=== PATIENT | male | born 1980 | race Caucasian/White ===

== ENCOUNTER 2016-08-20 22:10 | Emergency (ER) | payer SELFPAY ==
[~2016-08-20] VITALS: Ht 185.4 cm; Wt 83.9 kg
[2016-08-20 22:10] VITALS: BP 127/95; PULSE 109; RESP 20; TEMP 98.5; O2SAT 99
[2016-08-20] MEDS ORDERED: NACL 0.9% 1,000 ML IV SCH (22:21)
[2016-08-20] MEDS ORDERED: DEXAMETHASONE SOD PHOSPHATE 10 MG/ML VIAL IVP ONE (22:30)
[2016-08-20] MEDS ORDERED: ONDANSETRON HCL 4 MG/2 ML VIAL IVP ONE (22:30)
[2016-08-20] MEDS ORDERED: PROCHLORPERAZINE EDISYLATE 10 MG/2 ML VIAL IVP ONE (22:30)
[2016-08-20 23:11] LABS: HEMATOCRIT 49.5 % (36-54); HEMOGLOBIN 16.6 g/dL (14.0-18.0); MEAN CORPUSCULAR HEMOGLOBIN 32 pg (27-31); MEAN CORPUSCULAR HGB CONC 34 % (32-36); MEAN CORPUSCULAR VOLUME 95 fL (79.0-98.0); PLATELET COUNT (AUTO) 257 K/uL (130-430); RED CELL DISTRIBUTION WIDTH 12.3 % (9.0-15.0); WHITE BLOOD COUNT (AUTO) 14.6 K/uL (4.8-10.8)
[2016-08-20 23:25] LABS: BILIRUBIN,URINE 1+ (NEGATIVE); CLARITY/URINE CLEAR (CLEAR); COLOR,URINE YELLOW (YELLOW); GLUCOSE,URINE NEGATIVE (NEGATIVE); KETONES,URINE 1+ (NEGATIVE); LEUKOCYTE ESTERASE ,URINE NEGATIVE (NEGATIVE); NITRITE, URINE NEGATIVE (NEGATIVE); PH,URINE 5.5 (5.0-8.0); PROTEIN URINE 1+ (NEGATIVE); PROTHROMBIN TIME 10.4 SECS (9.5-12.5); UROBILINOGEN,URINE 0.2 (0.2-1.0)
[2016-08-20 23:27] LABS: CALCIUM 10.9 mg/dL (8.4-11.0); CREATININE 2.14 mg/dL (0.55-1.30); POTASSIUM 3.9 mmol/L (3.5-5.1)
[2016-08-20] MEDS ORDERED: MORPHINE 2 MG/ML INJ. SYRINGE IVP ONE (23:30)
[2016-08-20] MEDS ORDERED: KETOROLAC TROMETHAMINE 30 MG VIAL IVP ONE (23:30)
[2016-08-20 23:32] LABS: ALBUMIN 5.4 g/dL (3.4-4.8); TOTAL BILIRUBIN 0.7 mg/dL (0.0-1.0); TOTAL PROTEIN, SERUM 9.3 g/dL (6.4-8.3)
[2016-08-20 23:34] LABS: BAND % (MANUAL) 1 % (0-6); BASOPHILS % (MANUAL) 0 % (0-2); EOSINOPHILS % (MANUAL) 0 % (0-7); LYMPHOCYTES % (MANUAL) 10 % (20-46); MONOCYTES % (MANUAL) 3 % (0-11)
[2016-08-20 23:45] LABS: BLOOD, URINE TRACE (NEGATIVE)
[2016-08-20 23:49] LABS: BACTERIA,URINE FEW /HPF (None Seen); FINE GRANULAR CASTS,URINE 0-10 /LPF (None Seen); MUCUS,URINE None Seen /LPF (None Seen)
[2016-08-21 00:39] VITALS: BP 123/76; PULSE 78; RESP 19; TEMP 98.2; O2SAT 98
== END 2016-08-21 00:39 | disposition home or self-care (01) ==
LOC: SED 22:10
DX: K52.9 Noninfective gastroenteritis and colitis, unspecified (principal); Z88.0 Allergy status to penicillin; Z91.010 Allergy to peanuts; Z90.49 Acquired absence of other specified parts of digestive tract
CPT/HCPCS: 36415; 71010; 74176; 80053; 81000; 83605; 85007; 85027; 85610; 85730; 87040; 87086; 93005; 96361; 96374; 96375; 99285; J0780; J1100; J1885; J2270; J2405; J7030

== ENCOUNTER 2016-08-22 10:31 | Emergency (ER) | payer SELFPAY ==
[~2016-08-22] VITALS: Ht 182.9 cm; Wt 83.9 kg
[2016-08-22 10:31] VITALS: BP_SYST 148
[2016-08-22] MEDS ORDERED: NACL 0.9% 1,000 ML IV ONE ×2 (11:10→11:15)
[2016-08-22] MEDS ORDERED: ONDANSETRON HCL 4 MG/2 ML VIAL IVP ONE ×2 (11:15→12:15)
[2016-08-22] MEDS ORDERED: KETOROLAC TROMETHAMINE 30 MG VIAL IVP ONE (11:15)
[2016-08-22] MEDS ORDERED: fentaNYL CITRATE/PF 100 MCG/2 ML AMP IVP ONE (11:15)
[2016-08-22] MEDS ORDERED: IOHEXOL 0 ML IV ONE (11:28)
[2016-08-22] MEDS ORDERED: HALOPERIDOL LACTATE 5 MG/ML VIAL IVP ONE ×2 (11:45→12:00)
[2016-08-22] MEDS ORDERED: HYDROmorphone 2 MG/ML VIAL IVP ONE (12:15)
[2016-08-22 14:35] VITALS: BP_SYST 138
== END 2016-08-22 14:35 | disposition left against medical advice (07) ==
LOC: SED 10:31
DX: R10.84 Generalized abdominal pain (principal); R11.10 Vomiting, unspecified; R19.7 Diarrhea, unspecified; Z88.0 Allergy status to penicillin; Z91.010 Allergy to peanuts
CPT/HCPCS: 96361; 96374; 96375; 96376; 99284; J1170; J1630; J1885; J2405; J3010; J7030; Q9967

== ENCOUNTER 2016-09-17 08:53 | Inpatient (IN) | payer SELFPAY ==
[~2016-09-17] VITALS: Ht 182.9 cm; Wt 80.7 kg
[2016-09-17 09:01] VITALS: BP 134/99; PULSE 73; RESP 16; TEMP 97.7; O2SAT 100
--- NOTE | 2016-09-17 09:05 | NUR ---
Patient to ER bed 5 to gown for evaluation. Side rails up. Report given to Curtis GORMAN.
[2016-09-17] MEDS ORDERED: ONDANSETRON HCL 4 MG/2 ML VIAL IVP ONE (09:15)
[2016-09-17] MEDS ORDERED: HYDROmorphone 1 MG INJ. 1 MG/ML AMPUL IVP ONE ×4 (09:15→15:45)
--- NOTE | 2016-09-17 09:15 | NUR ---
Patient brought in by self with complaint of nausea and vomitting x 20 during evening since 09/16/16. Patient vomitting x 2 during assessement, emesis 15 cc, thin, yellow, no blood.Patient verbalizes, "8/10 stomach pain that radiates from the top to bottom of my stomach." Patient awake,alert, and oriented x 4, afebrile, vss. No other complaints/injuries per patient, none noted.
--- NOTE | 2016-09-17 09:18 | NUR ---
Dr. Shipley at bedside examining patient. Received new orders.
[2016-09-17 10:10] LABS: BASOPHILS # (AUTO) 0.1 K/uL (0.0-0.2); BASOPHILS % (AUTO) 0.4 % (0.0-2.0); EOSINOPHILS % (AUTO) 0.3 % (0.0-4.0); HEMATOCRIT 50.1 % (36-54); HEMOGLOBIN 16.4 g/dL (14.0-18.0); LYMPHOCYTES # (AUTO) 1.5 K/uL (1.0-5.5); LYMPHOCYTES % (AUTO) 9.7 % (20.5-51.5); MEAN CORPUSCULAR HEMOGLOBIN 32 pg (27-31); MEAN CORPUSCULAR HGB CONC 33 % (32-36); MEAN CORPUSCULAR VOLUME 97 fL (79.0-98.0); MONOCYTES # (AUTO) 0.4 K/uL (0.0-1.0); MONOCYTES % (AUTO) 2.6 % (1.7-9.3); NEUTROPHILS # (AUTO) 13.2 K/uL (1.8-7.7); PLATELET COUNT (AUTO) 256 K/uL (130-430); RED BLOOD CELL COUNT(AUTO) 5.15 MIL/uL (4.2-6.2); RED CELL DISTRIBUTION WIDTH 12.3 % (9.0-15.0); WHITE BLOOD COUNT (AUTO) 15.2 K/uL (4.8-10.8)
--- NOTE | 2016-09-17 10:10 | NUR ---
# 20 gauge angiocath placed to left AC. Use of asceptic technique. Opsite placed over site. Blood return noted. Blood for lab drawn from site. Flushed with 10 cc of normal saline. No evidence of infiltration noted. Patient tolerated well.
--- NOTE | 2016-09-17 10:15 | NUR ---
Patient medicated as ordered.
[2016-09-17 10:19] LABS: ANION GAP 12 (5-15); CALCIUM 9.6 mg/dL (8.4-11.0); CHLORIDE 104 mmol/L (98-107); CREATININE 1.01 mg/dL (0.55-1.30); GLUCOSE 102 mg/dL (70-99); POTASSIUM 4.3 mmol/L (3.5-5.1); PROTHROMBIN TIME 10.4 SECS (9.5-12.5); SODIUM SERUM 141 mmol/L (136-145); UREA NITROGEN, BLOOD 10 mg/dL (8-21)
[2016-09-17 10:24] LABS: GFR AFRICAN AMERICAN 107 mL/min (>90)
[2016-09-17 10:27] LABS: ALANINE AMINOTRANSFERASE 21 U/L (12-78); ALBUMIN 4.6 g/dL (3.4-4.8); AMYLASE 52 U/L (0-100); ASPARTATE AMINOTRANSFERASE 21 U/L (10-37); LIPASE 83 U/L (73-393); TOTAL BILIRUBIN 0.4 mg/dL (0.0-1.0); TOTAL PROTEIN, SERUM 7.8 g/dL (6.4-8.3)
--- NOTE | 2016-09-17 10:39 | NUR ---
Patient appears asleep in bed, positive chest rise and fall noted. Patient distress, vss, denies chest pain, sob, afebrile.
[2016-09-17] MEDS ORDERED: METOCLOPRAMIDE HCL 10 MG/2 ML VIAL IVP ONE (10:45)
--- NOTE | 2016-09-17 10:50 | NUR ---
Patient medicated per MD orders.
[2016-09-17 11:01] LABS: BILIRUBIN,URINE NEGATIVE (NEGATIVE); CLARITY/URINE CLEAR (CLEAR); COLOR,URINE YELLOW (YELLOW); GLUCOSE,URINE NEGATIVE (NEGATIVE); KETONES,URINE NEGATIVE (NEGATIVE); LEUKOCYTE ESTERASE ,URINE NEGATIVE (NEGATIVE); NITRITE, URINE NEGATIVE (NEGATIVE); PH,URINE 6.5 (5.0-8.0); PROTEIN URINE NEGATIVE (NEGATIVE); UROBILINOGEN,URINE 0.2 (0.2-1.0)
[2016-09-17 11:08] LABS: BLOOD, URINE TRACE (NEGATIVE)
[2016-09-17 11:10] LABS: BACTERIA,URINE RARE /HPF (None Seen); MUCUS,URINE 1+ /LPF (None Seen); RBC,URINE 0-3 /HPF (0-3); WBC,URINE 0-3 /HPF (0-3)
[2016-09-17] MEDS ORDERED: NACL 0.9% 1,000 ML IV ONE (11:15)
--- NOTE | 2016-09-17 11:15 | NUR ---
IVF bolus started as ordered by MD. Patient scanned and identified using three identifiers. 1L normal saline bag would not scan. Pharmacies contacted and made aware. Manually entered IVF bolus order for medication administeration. Patient vomitted x 4, yellow, thin liquid noted. Patient remains sitting upright in bed, no signs of distress, vss, denies chest pain, sob. He continues to be monitored closely.
[2016-09-17] MEDS ORDERED: IOHEXOL 100 ML IV ONE (12:11)
[2016-09-17] MEDS ORDERED: CIPROFLOXACIN LACT 400 MG/D5W 200 ML IV ONE (13:15)
[2016-09-17] MEDS ORDERED: metroNIDAZOLE 500 mg/NS 100 ML IV ONE (13:15)
--- NOTE | 2016-09-17 13:22 | NUR ---
Pt states cannot recall name of one medication taken at home. Pt denies taking any other home meds.
[2016-09-17] MEDS: D5NS 1,000 ML IV SCH ×2 (13:30→19:58)
--- NOTE | 2016-09-17 13:30 | NUR ---
Received telephone admit orders from Dr. Green to admit. Contacted Med Surg Charge for bed. Charge nurse stated she would call back.
--- NOTE | 2016-09-17 13:52 | NUR ---
Med Surg called back with bed med surg 135.
--- NOTE | 2016-09-17 14:25 | NUR ---
Patient will be admitted to care of Dr. Green. Admitted to med Surg unit. Will go to room 100B. Belongings list completed. Summary report printed. Report will be given at bedside. Transferred via gurney. Licensed nurse present. IV present no signs or symptoms of infiltration. Endorsed to RN to start Flagyl IVP as ordered after Cipro IVP has finished infusion.
--- NOTE | 2016-09-17 14:37 | NUR ---
ADMISSION NOTE Received patient from ER via gurney, received report from ER. Patient admitted with diagnosis of abdominal pain. Patient oriented to hospital routine, call light, toileting and safety-patient verbalized understanding.
--- NOTE | 2016-09-17 14:40 | NUR ---
Received Patient Received patient from Emergency department via [email or web address] with complaints of severe abdominal pain 11/22. No nausea or vomiting, sob, difficulty breathing or distress noted. IV to Right AC #20g. Educated about safety and fall precautions. Oriented to unit. Encouraged to call for assistance.
--- NOTE | 2016-09-17 15:00 | NUR ---
Dr. Jinny MOLINA inside room assessing patient. Plan of care discussed. Ordered Dilaudid 1mg IVP for severe pain x1.
[2016-09-17 15:14] VITALS: BP 130/76; PULSE 52; RESP 20; TEMP 97.6; O2SAT 96
[2016-09-17 15:25] VITALS: BP 130/76; PULSE 52; RESP 20; TEMP 97.6; O2SAT 96
--- NOTE | 2016-09-17 15:46 | NUR ---
Consult was called Re:Surgical consult for Abdominal spoke with Sabi from Dr Jinny bui .
--- NOTE | 2016-09-17 16:14 | NUR ---
Rounds Pt medicated with Dilaudid 1mg and states its not really helping the pain to go down. Feels slightly nauseated. Called and spoke with Dr. Green. MD made aware of patient pain condition. MD will enter orders. Kept pt comfortable. Mother at bedside. Will monitor.
[2016-09-17] MEDS ORDERED: ACETAMINOPHEN/CODEINE 300 MG-30 MG TABLET PO PRN (16:15)
--- NOTE | 2016-09-17 17:30 | NUR ---
Pain Pt complaints of abdominal pain 8-9/10 and feels nauseated. Informed RN for medication administration.
[2016-09-17] MEDS: HYDROmorphone 2 MG/ML VIAL IVP PRN ×2 (17:47→22:18)
[2016-09-17] MEDS: METOCLOPRAMIDE HCL 10 MG/2 ML VIAL IVP PRN (17:48)
[2016-09-17] MEDS: metroNIDAZOLE 500 mg/NS 100 ML IV SCH ×2 (17:52→20:53)
[2016-09-17] MEDS: LEVOFLOXACIN 500 MG/D5W 100 ML IV SCH (17:57)
--- NOTE | 2016-09-17 18:30 | NUR ---
Closing notes Pt asleep. No signs of facial grimacing for pain or discomfort. No distress noted. Pt refused to have bed alarm armed. Will endorse care to incoming nurse.
--- NOTE | 2016-09-17 19:20 | NUR ---
initial nursing notes: Patient awake in bed. Patient watching television. Patient has IV fluid infusing on the right AC IV access. Patient denies of having pain.
[2016-09-17 20:45] VITALS: BP 119/70; PULSE 53; RESP 16; TEMP 97.7; O2SAT 98
--- NOTE | 2016-09-17 21:20 | NUR ---
nursing rounds: Patient calmly resting in bed. Call light within patient's reach.
[2016-09-17] MEDS: ONDANSETRON HCL 4 MG/2 ML VIAL IVP PRN (22:17)
--- NOTE | 2016-09-17 23:01 | NUR ---
ASSUME CARE: ON BED RESTING, COMPLAIN OF SLIGHT ABDOMINAL PAIN. STABLE. IVF INFUSING WELL. EXPLAIN SAFETY. PT AGREE. NEEDS ATTENDED. WILL FOLLOW-UP.
--- NOTE | 2016-09-17 23:52 | NUR ---
round: pt call due ivf is alarming. fix alarming ivf. close bp so will not make noise. stay and double check if iv machine will alarm. again. needs attended. will follow-up.
[2016-09-18 00:04] VITALS: BP 108/60; PULSE 47; RESP 18; TEMP 96.9; O2SAT 97
--- NOTE | 2016-09-18 02:11 | NUR ---
round notes: pt is awake. complain of pain. 10/22, ask for pain medication and anti-nuase and vomiting. explain pain side effects and safety. needs attended. will follow-up.
[2016-09-18] MEDS: METOCLOPRAMIDE HCL 10 MG/2 ML VIAL IVP PRN ×3 (02:15→22:52)
[2016-09-18] MEDS: D5NS 1,000 ML IV SCH ×4 (02:15→22:00)
[2016-09-18] MEDS: HYDROmorphone 2 MG/ML VIAL IVP PRN ×5 (02:16→22:52)
--- NOTE | 2016-09-18 04:05 | NUR ---
round: pt wakes up when check. pt stated he's ok. no acute distress. ivf infusing well. needs attended. call light in reach. will monitor.
[2016-09-18 06:07] VITALS: BP 100/56; PULSE 64; RESP 18; TEMP 97.8; O2SAT 96
[2016-09-18] MEDS: metroNIDAZOLE 500 mg/NS 100 ML IV SCH ×3 (06:10→21:59)
[2016-09-18] MEDS: ONDANSETRON HCL 4 MG/2 ML VIAL IVP PRN ×3 (06:10→18:53)
--- NOTE | 2016-09-18 06:34 | NUR ---
round notes: pt is awake. complain of abdominal pain 8/10,vital sign are with in normal limit. ask for pain medication and anti-nausea and vomiting. explain pain side effects and safety. needs attended. will follow-up.
--- NOTE | 2016-09-18 07:17 | NUR ---
closing: awake, alert. mother at bedside. ivf infusing well. stable. needs attended. bedside report given to am rn.
--- NOTE | 2016-09-18 08:00 | NUR ---
OPENING NOTE: RECEIVED REPORT FROM NIGHT NURSE. PATIENT IS RESTING IN BED. NO S/S OF DISTRESS OR SOB. PATIENT IS ALERT AND ORIENTED, ABLE TO EXPRESS NEEDS, AND ASK FOR ASSISTANCE. PATIENT HAS AN ANGRY TONE AND HAS BEEN COMPLAINING. PATIENT WAS EDUCATED ON WHEN DOCTORS MAKE ROUNDS AND EDUCATED ON PAIN MEDICATION TIME SCHEDULE. VITAL SIGNS WNL, ASSESSMENT COMPLETE. CALL LIGHT IN REACH, BED IN LOWEST POSITION, AND WILL CONTINUE TO MONITOR.
[2016-09-18 08:29] VITALS: BP 118/68; PULSE 50; RESP 17; TEMP 98; O2SAT 97
[2016-09-18] MEDS: PANTOPRAZOLE SODIUM 40 MG/VIAL (PROTONIX) IVP SCH ×2 (09:30→21:59)
[2016-09-18] MEDS ORDERED: PANTOPRAZOLE SODIUM 40 MG/VIAL (PROTONIX) IVP ONE (09:45)
[2016-09-18 10:18] LABS: BASOPHILS % (AUTO) 0.4 % (0.0-2.0); EOSINOPHILS # (AUTO) 0.2 K/uL (0.0-0.4); EOSINOPHILS % (AUTO) 1.7 % (0.0-4.0); HEMATOCRIT 44.2 % (36-54); HEMOGLOBIN 14.7 g/dL (14.0-18.0); LYMPHOCYTES % (AUTO) 30.6 % (20.5-51.5); MEAN CORPUSCULAR HEMOGLOBIN 33 pg (27-31); MEAN CORPUSCULAR HGB CONC 33 % (32-36); MEAN CORPUSCULAR VOLUME 99 fL (79.0-98.0); MONOCYTES # (AUTO) 0.5 K/uL (0.0-1.0); MONOCYTES % (AUTO) 5.3 % (1.7-9.3); PLATELET COUNT (AUTO) 238 K/uL (130-430); RED BLOOD CELL COUNT(AUTO) 4.49 MIL/uL (4.2-6.2); RED CELL DISTRIBUTION WIDTH 12.2 % (9.0-15.0); WHITE BLOOD COUNT (AUTO) 9.7 K/uL (4.8-10.8)
--- NOTE | 2016-09-18 10:18 | NUR ---
NOTE: PATIENT IS RESTING IN BED. NO S/S OF DISTRESS OR SOB. PAIN MEDICATION IS BEING ADMINISTERED. PATIENT IS ALERT AND ORIENTED, ABLE TO EXPRESS NEEDS, AND ASK FOR ASSISTANCE. CALL LIGHT IN REACH, BED IN LOWEST POSITION, AND WILL CONTINUE TO MONITOR.
--- NOTE | 2016-09-18 10:40 | NUR ---
education Pt claimed that blood was drawn from the peripheral line in the ER after treatment was given, that there is no reason why the floor cannot draw from the peripheral line. Informed pt that there is a continous IV running and that the blood will be diluted, stopping the IV will delay treatment. pt verbalized " It sounds good when you say it but that is not true. I am not other pt. I know things." instructed pt to call charge this courtroom reporter for help if needed.
--- NOTE | 2016-09-18 10:47 | NUR ---
CONSUL WAS CALLED FOR DOCTOR HERMAN THE REASON WAS FOR G.I. BLEEDING AND SPOKE WITH MAMADOU [phone]
--- NOTE | 2016-09-18 10:50 | NUR ---
TRANSFER OF CARE TRANSFERRED CARE OF PATIENT TO VITA ALEXANDER. REPORT WAS GIVEN AND UPDATE GIVEN ON CURRENT STATUS OF ANGER AND NON COOPERATION. NEEDS ADDRESSED.
--- NOTE | 2016-09-18 10:52 | NUR ---
ASSUMED CARE OF PATIENT FROM VITA VORA. REPORT GIVEN THAT PATIENT IS EXTREMELY ANGRY, HOSTILE AND UNCOOPERATIVE.PATIENT ARGUES WITH HOSPITAL POLICY, REQUESTS NEW DRS AND IS REFUSING CARE. WILL INTRODUCE MYSELF TO PATIENT MOMENTARILY
--- NOTE | 2016-09-18 11:19 | NUR ---
INTRODUCED MYSELF TO PATIENT. GAVE HIM A BEDSIDE PHONE AND INSTRUCTIONS FOR CALLING ME DIRECTLY FOR ANY MEDICAL NEEDS. PT DENIES ANY NEEDS AT THIS TIME. REPORTS PAIN IS AT A TOLERABLE LEVEL. VISITED BY YEHUDA STEVENS FOR ASSESSMENT OF PATIENT'S IMPRESSION OF HIS STAY IN HOSPITAL. PATIENT STATES HE FEELS NURSES ARE ARGUMENTATIVE. HE CITES INSTANCES WHERE HE WAS UPSET WITH HOSPITAL POLICY SUCH DRAWING BLOOD FROM AN IV SITE, HOW LONG AN MD HAS BEFORE THEY MUST SEE A NEWLY ADMITTED PATIENT. PER THE PATIENT L[place]IS AND VIELKA BOTH TRIED TO EXPLAIN POLICY TO HIM BUT HE DIDN'T CARE WHAT POLICY WAS BECAUSE HIS MEDIC BACKGROUND () HAS LED HIM TO BE EDUCATED ON THESE THINGS AND HE WANTS TO BE TREATED THE WAY HE THINKS IS BEST, REGARDLESS OF OUR POLICIES. PATIENT DOES NOT SEEM ANGRY OR HOSTILE BUT DOES APPEAR UNHAPPY AND RESISTANT TO ANY TYPE OF CONTROL OVER HIS ENVIRONMENT.
[2016-09-18 11:43] VITALS: BP 113/63; PULSE 61; RESP 19; TEMP 98.3; O2SAT 96
--- NOTE | 2016-09-18 13:01 | NUR ---
PT CO OF IV BEEPING, WAS ALARMING HIGH PRESSURE. PT HAS R ARM 20G IN AC, ADVISED HIS TO KEEP HIS ARM STRAIGHT IT WAS BENT, HE STATED HE WAS KEEPING IT STRAIGHT, DESPITE CLEARLY HAVING ELBOW BENT AT 45DEGREE ANGLE., PATIENT BELIEVES THE IV PUMP IS FAULTY
--- NOTE | 2016-09-18 14:54 | NUR ---
PT MEDICATED FOR NAUSEA AND PAIN BY ADI, INFANT BABYSITTER. IV SITE RETAPED AND REINFORCED. PATIENT MEDICATED WITH IV FLAGYL PER ORDERS. PER ADI PATIENT'S VOMIT WAS CLEAR TO LIGHT YELLOW AND FROTHY. NO SIGNS OF BLEEDING
[2016-09-18 15:23] VITALS: BP 129/77; PULSE 52; RESP 19; TEMP 98.2; O2SAT 97
--- NOTE | 2016-09-18 15:58 | NUR ---
PATIENT IS RESTING, APPEARS OT BE SLEEPING. NO SIGNS OF DISTRESS
[2016-09-18] MEDS: LEVOFLOXACIN 500 MG/D5W 100 ML IV SCH (16:22)
[2016-09-18] MEDS ORDERED: MAGNESIUM CITRATE 300 ML ORAL SOLUTION PO ONE (17:00)
[2016-09-18] MEDS: HYDROmorphone 1 MG INJ. 1 MG/ML AMPUL IVP PRN (18:53)
--- NOTE | 2016-09-18 19:17 | NUR ---
ROUNDING NOTE REPORT GIVEN BY DAY NURSE AT BED SIDE. SAFETY PRECAUTIONS ARE IN PLACE, PATIENT IS STABLE.
[2016-09-18 20:00] VITALS: BP 127/71; PULSE 56; RESP 16; TEMP 98.4; O2SAT 97
--- NOTE | 2016-09-18 20:00 | NUR ---
OPENING NOTE Pt. and bedside report received from day shift nurse. Pt. is AAO x 4 and resting in bed. Pt. is stable with no s/s of acute distress. Safety and fall precautions in place. Educated pt. regarding safety and fall risk measures because of the medications he is receiving but pt. is refusing bed alarm and states "I've been getting up to go to the bathroom all day, I know and I'm good." Will continue to encourage. IV site to left a/c infusing IVF as ordered. Encouraged pt. to use call light for needs. Will continue to monitor.
--- NOTE | 2016-09-18 21:00 | NUR ---
CONCERNS ABOUT EGD Late entry due to pt. care. Pt. states that GI doctor came and mentioned procedure but he [patient] still has concerns and questions about it. Encouraged pt. to drink mag citrate but pt. refusing at this time. Will continue to encourage.
--- NOTE | 2016-09-18 21:17 | NUR ---
PT. UPSET Pt. was upset with staff member and states he was using call light and no one answered his call for 15 minutes Acknowledged pt.'s concerns. Pt. denies any other needs at this time. Plan of care discussed. Encouraged pt. to use call light for needs. Will continue to monitor.
--- NOTE | 2016-09-18 22:15 | NUR ---
DUE MEDS Due meds reviewed and education provided to pt. Pt. verbalized understanding with no concerns at this time. Pt. denies any nausea or vomiting at this time. Expressed his feelings about how he was upset with his hospital stay. Asked pt. if there was anything I can do before I leave the room and he said "No, it's okay I'm going to get some rest. I will call you if I'm in pain, I just want to wait a little bit." Educated pt. regarding his available medications for pain and nausea management. Encouraged pt. to use call light for needs. Safety precautions in place. IVF infusing as ordered. Will continue to monitor.
--- NOTE | 2016-09-18 22:59 | NUR ---
PAIN/NAUSEA Pt. c/o "8" to abdomen and c/o nausea. Pt. medicated with Dilaudid 2mg IVP as ordered PRN for severe pain. Reglan 10mg IVP as ordered PRN for nausea. Educated pt. regarding medication and s/e. Encouraged pt. to use call light for needs and medication increases his risks for falls. Pt. verbalized understanding. Refused bed alarm. Call light to right hand. STOPPING BUILDER at bedside taking vitals. Will continue to monitor.
--- NOTE | 2016-09-18 23:54 | NUR ---
ROUNDS Pt. resting and stated his pain level is comfortable at this time. Pt. denies any needs. Encouraged pt. to use call light for any assistance. Call light to right hand. Will continue to monitor.
[2016-09-19] VITALS: BP 117/71; PULSE 53; RESP 16; TEMP 98.2; O2SAT 93
--- NOTE | 2016-09-19 02:26 | NUR ---
RESTING Pt. appears to be resting at this time with eyes closed. Television is on in room. Respirations are even and unlabored with visible chest rise and fall. No s/s of acute distress. Safety precautions in place. Call light to right hand. Bed alarm remains off as requested by pt. Will continue to monitor.
[2016-09-19 04:49] VITALS: BP 121/72; PULSE 50; RESP 18; TEMP 99; O2SAT 96
[2016-09-19] MEDS: metroNIDAZOLE 500 mg/NS 100 ML IV SCH ×3 (05:10→21:38)
[2016-09-19] MEDS: D5NS 1,000 ML IV SCH ×2 (05:10→21:39)
--- NOTE | 2016-09-19 05:16 | NUR ---
DUE IV ABX Due IV antibiotic administered as ordered. IVF bag changed; infusing as ordered. See EMAR. Pt. denies any pain, discomfort or nausea at this time. Pt. still refusing to drink mag citrate. Pt. denies any needs or assistance at this time. Encouraged pt. to use call light for any needs. Safety precautions in place. Call light to right hand. Will continue to monitor.
--- NOTE | 2016-09-19 06:41 | NUR ---
CLOSING NOTES All needs met throughout shift. Pt. is stable with no s/s of acute distress. Pt. denies any pain or discomfort at this time. Safety precautions in place. Call light to right hand. Pending EGD consent due to pt. having questions for MD. Will endorse care to oncoming day shift nurse.
--- NOTE | 2016-09-19 07:45 | NUR ---
MAG CITRATE Pt. stated he ended up drinking the bottle of mag citrate and had a bowel movement. Oncoming day shift nurse also aware.
--- NOTE | 2016-09-19 07:46 | NUR ---
OPENING NOTE/00 NOTE RECEIVED REPORT FROM RESIDENTIAL WORKER RN. PATIENT RESTING COMFORTABLY, PAIN RATED AT 5/10, TOLERABLE PER PATIENT. PATIENT HAS NO NOTABLE SIGNS OF DISTRESS. PATIENT TOOK MAG CITRATE AND HAS HAD 3 BOWEL MOVEMENTS CURRENTLY. PATIENTS MOTHER IS AT BEDSIDE VISITING. PATIENTS IV IS RUNNING PER MD ORDERS. PATIENTS BED IN LOWEST POSITION, CALL LIGHT WITHIN REACH, AND SIDE RAILS ARE UP FOR SAFETY. WILL CONTINUE TO MONITOR PATIENT FOR CHANGES IN STATUS.
[2016-09-19] MEDS: PANTOPRAZOLE SODIUM 40 MG/VIAL (PROTONIX) IVP SCH ×2 (08:25→21:38)
[2016-09-19] MEDS: HYDROmorphone 2 MG/ML VIAL IVP PRN ×4 (08:26→21:40)
[2016-09-19] MEDS: ONDANSETRON HCL 4 MG/2 ML VIAL IVP PRN ×2 (08:27→21:38)
[2016-09-19 10:30] VITALS: BP 136/75; PULSE 60; RESP 14; TEMP 98.2; O2SAT 96
--- NOTE | 2016-09-19 10:33 | NUR ---
1000 NOTE PATIENT RESTING COMFORTABLY, PAIN RATED AT 5/10, TOLERABLE PER PATIENT. PATIENT HAS NO NOTABLE SIGNS OF DISTRESS. PATIENT HAS BEEN SEEN BY DR. TOLLIVER, DR. PRICE. PATIENT HAS SIGNED CONSENT FOR EGD, AND IS AWARE OF SCHEDULED TIME. PATIENT ASKED WHAT ORDERS WERE PLACED. PATIENT AWARE OF PSYCHIATRIC CONSULTATION, WOULD LIKE TO SPEAK WITH DR. PRICE REGARDING REASONING. PATIENT SEEMS VERY UPSET. PATIENTS MOTHER IS AT BEDSIDE VISITING. PATIENTS IV IS RUNNING PER MD ORDERS. PATIENTS BED IN LOWEST POSITION, CALL LIGHT WITHIN REACH, AND SIDE RAILS ARE UP FOR SAFETY. WILL CONTINUE TO MONITOR PATIENT FOR CHANGES IN STATUS.
--- NOTE | 2016-09-19 11:02 | NUR ---
ken was called for doctor Wade the reason , labile mood and spoke with Briseida [phone]
[2016-09-19 11:32] VITALS: BP 131/75; PULSE 52; RESP 19; TEMP 98; O2SAT 98
--- NOTE | 2016-09-19 12:20 | NUR ---
1200 NOTE PATIENT RESTING COMFORTABLY, PAIN RATED AT 5/10, TOLERABLE PER PATIENT, BUT WOULD LIKE PAIN MEDICATION WHEN AVAILABLE. PATIENT HAS NO NOTABLE SIGNS OF DISTRESS. PATIENT SPOKE WITH DR. PRICE REGARDING CONSULTATION, AND WOULD LIKE TO HAVE A DIFFERENT PROVIDER. PATIENT HAS AGREED TO HAVE THE EGD PROCEDURE PENDING SPEAKING WITH DR. SUTTON ABOUT THE PROCEDURE. GI LAB KNOWS, AND DR. SUTTON AGREES TO COMMUNICATE WITH THE PATIENT REGARDING PROCEDURE. PATIENTS IV IS RUNNING PER MD ORDERS. PATIENTS BED IN LOWEST POSITION, CALL LIGHT WITHIN REACH, AND SIDE RAILS ARE UP FOR SAFETY. WILL CONTINUE TO MONITOR PATIENT FOR CHANGES IN STATUS.
[2016-09-19] MEDS ORDERED: MEPERIDINE HCL/PF 100 MG/ML AMP ONE (13:10)
[2016-09-19] MEDS ORDERED: SIMETHICONE 40 MG/0.6 ML ML ONE (13:10)
[2016-09-19] MEDS: METOCLOPRAMIDE HCL 10 MG/2 ML VIAL IVP PRN (13:24)
[2016-09-19] MEDS ORDERED: DIPHENHYDRAMINE INJ 50 MG/ML VIAL ONE (14:43)
--- NOTE | 2016-09-19 14:45 | NUR ---
1400 NOTE PATIENT RESTING COMFORTABLY, PAIN RATED AT 5/10, TOLERABLE PER PATIENT, AFTER PAIN MEDICATION ADMINISTRATION. PATIENT HAS NO NOTABLE SIGNS OF DISTRESS. PATIENT WAS DISCONNECTED FROM IV, AND SENT TO GI LAB FOR EGD PROCEDURE. PATIENT WAS TAKEN DOWN IN WHEELCHAIR.
[2016-09-19] MEDS: MIDAZOLAM HCL 5 MG/5 ML VIAL ONE ×3 (14:51→14:55)
--- NOTE | 2016-09-19 16:10 | NUR ---
1600 NOTE PATIENT RESTING COMFORTABLY, PAIN RATED AT 5/10, TOLERABLE PER PATIENT, BUT WOULD LIKE PAIN MEDICATION WHEN AVAILABLE. PATIENT TOLERATED EGD PROCEDURE WELL. WAS PERFORMED WITH NO COMPLICATIONS. PATIENT HAS NO NOTABLE SIGNS OF DISTRESS. PATIENT HAS SIGNED CONSENT FOR SMOKING PRIVILEGES. PATIENTS IV IS RUNNING PER MD ORDERS. PATIENTS BED IN LOWEST POSITION, CALL LIGHT WITHIN REACH, AND SIDE RAILS ARE UP FOR SAFETY. WILL CONTINUE TO MONITOR PATIENT FOR CHANGES IN STATUS.
[2016-09-19] MEDS: LEVOFLOXACIN 500 MG/D5W 100 ML IV SCH (17:23)
--- NOTE | 2016-09-19 18:45 | NUR ---
1800/CLOSING NOTE WAITING TO GIVE REPORT TO SPECIAL PROCEDURES TECH NURSE. PATIENT RESTING COMFORTABLY, PAIN RATED AT 5/10, TOLERABLE PER PATIENT, BUT WOULD LIKE PAIN MEDICATION WHEN AVAILABLE. PATIENT TOLERATED EGD PROCEDURE WELL. WAS PERFORMED WITH NO COMPLICATIONS. PATIENT HAS NO NOTABLE SIGNS OF DISTRESS. PATIENT HAS TOLERATED FULL LIQUID DIET. PATIENT HAS SIGNED CONSENT FOR SMOKING PRIVILEGES. PATIENTS IV IS RUNNING PER MD ORDERS. PATIENTS BED IN LOWEST POSITION, CALL LIGHT WITHIN REACH, AND SIDE RAILS ARE UP FOR SAFETY. WILL CONTINUE TO MONITOR PATIENT FOR CHANGES IN STATUS.
[2016-09-19 19:05] VITALS: BP 132/78; PULSE 56; RESP 18; TEMP 98.2; O2SAT 97
--- NOTE | 2016-09-19 19:05 | NUR ---
Initial Notes Received pt in bed with family at bedside.No s/s of any distress noted. IV noted to R a/c g 20. no infiltrate and with good blood return. All extremities are strong, BRP. discussed plan of care with patient and verbalized understanding. Will cont to monitor.
--- NOTE | 2016-09-19 19:50 | NUR ---
Went out for smoke Pt went to smoke with .
--- NOTE | 2016-09-19 21:05 | NUR ---
Pt went to smoke Pt went to smoke outside with .
--- NOTE | 2016-09-19 21:40 | NUR ---
Admin Dilaudid and Zofran prn Admin Dilaudid PRN for pain and Zofran PRN for n/v. Will reassess after one hour.
--- NOTE | 2016-09-19 23:05 | NUR ---
Rounds Pt is ambulating at this time. No s/s of ant distress noted. Call light within reach, will cont to monitor.
[2016-09-20 00:51] VITALS: BP 112/68; PULSE 50; RESP 17; TEMP 97.5; O2SAT 97
--- NOTE | 2016-09-20 01:05 | NUR ---
Rounds Pt is ambulated to the b/r. No s/s of ant distress noted. Call light within reach, will cont to monitor.
[2016-09-20] MEDS: METOCLOPRAMIDE HCL 10 MG/2 ML VIAL IVP PRN ×2 (01:38→09:18)
[2016-09-20] MEDS: HYDROmorphone 1 MG INJ. 1 MG/ML AMPUL IVP PRN ×2 (01:39→05:15)
--- NOTE | 2016-09-20 01:45 | NUR ---
Admin Dilaudid and Reglan prn Admin Dilaudid PRN for pain and Zofran PRN for n/v. Will reassess after one hour.
--- NOTE | 2016-09-20 03:05 | NUR ---
Rounds Pt is resting at this time. No s/s of any distress noted. Call light in reach, will cont to monitor.
[2016-09-20 04:00] VITALS: BP 102/57; PULSE 58; RESP 18; TEMP 97.8; O2SAT 97
[2016-09-20] MEDS: ONDANSETRON HCL 4 MG/2 ML VIAL IVP PRN (05:14)
[2016-09-20] MEDS: metroNIDAZOLE 500 mg/NS 100 ML IV SCH (05:19)
[2016-09-20] MEDS: D5NS 1,000 ML IV SCH (05:19)
--- NOTE | 2016-09-20 06:55 | NUR ---
Final Rounds Patient is resting in bed at this time. No c/o pain or any distress noted. V/S are wnl. All needs met and anticipated by noc nurses. Bed in low position with call light within reach. Will cont to monitor.
--- NOTE | 2016-09-20 07:40 | NUR ---
INITIAL NOTE RECEIVED PATIENT FROM IN HOME SALES REPRESENTATIVE NURSE, PATIENT IS CURRENTLY RESTING IN BED, NO SIGNS OF DISTRESS NOTED, PATIENT IS ALERT AND ORIENTED X4, ASSESSMENT COMPLETE, PATIENT HAS IV IN RIGHT FOREARM WITH FLUIDS INFUSING, NO SIGNS OF INFILTRATION NOTED, INSTRUCTED PATIENT TO USE CALL CARR[place]QUILLO IF ASSISTANCE IS NEEDED, PATIENT VERBALIZED UNDERSTANDING, CALL [place] LEFT IN PATIENT'S HAND, BED IN LOWEST POSITION, SIDE RAILS UP, FALL PRECAUTIONS IN PLACE, WILL CONTINUE TO MONITOR.
[2016-09-20 09:16] VITALS: BP 124/82; PULSE 58; RESP 18; O2SAT 97
[2016-09-20] MEDS: HYDROmorphone 2 MG/ML VIAL IVP PRN (09:17)
--- NOTE | 2016-09-20 09:20 | NUR ---
MEDICATIONS PATIENT WAS GIVEN PAIN MEDICATION AND PROTONIX BY AD NURSE, WILL REASSESS PATIENT'S PAIN
[2016-09-20] MEDS: PANTOPRAZOLE SODIUM 40 MG/VIAL (PROTONIX) IVP SCH (09:24)
[2016-09-20] MEDS ORDERED: PRO40 PO (09:33)
[2016-09-20] MEDS ORDERED: ONDA4TAB5 PO (09:33)
--- NOTE | 2016-09-20 10:10 | NUR ---
RN ROUNDS PATIENT IS CURRENTLY RESTING IN BED, MOTHER IS AT BEDSIDE, PATIENT DOESN'T HAVE ANY COMPLAINTS OF PAIN OR DISCOMFORT, WILL CONTINUE TO MONITOR. FALL PRECAUTIONS IN PLACE.
[2016-09-20 11:28] VITALS: BP 124/82; PULSE 58; RESP 16; TEMP 98.2; O2SAT 98
--- NOTE | 2016-09-20 11:40 | NUR ---
D/C Patient Patient given medication reconciliation form and D/C instructions. Exit Care provided. Patient verbalized understanding. MD discussed with patient the results and treatment provided. Ambulatory with steady gait for discharge to home. Patient in stable condition, ID band removed. IV catheter removed, intact and dressing applied, no active bleeding. Rx of protonix and zofran given. Patient educated on pain management. All belongings sent with patient.
[2016-09-20 12:00] VITALS: BP 120/71; PULSE 61; RESP 18; TEMP 97.4; O2SAT 98
[2016-09-20] MEDS ORDERED: PANTOPRAZOLE GRANULES PACKET 40 MG GT SCH (21:00)
== END 2016-09-20 11:00 | disposition home or self-care (01) | DRG 378 ==
LOC: SED 08:53 → SMU 13:29
PROVIDERS: ADMIT Internal Medicine Hospice and Palliative Medicine; ATTEND Internal Medicine Hospice and Palliative Medicine
PROC: 0DB98ZX Excision of Duodenum, Via Natural or Artificial Opening Endoscopic, Diagnostic (ICD-10-PCS; 2016-09-19)
PROC: 0DB68ZX Excision of Stomach, Via Natural or Artificial Opening Endoscopic, Diagnostic (ICD-10-PCS; principal; 2016-09-19 14:10)
DX: K29.01 Acute gastritis with bleeding (principal); F11.20 Opioid dependence, uncomplicated; F17.210 Nicotine dependence, cigarettes, uncomplicated; G89.29 Other chronic pain; F12.90 Cannabis use, unspecified, uncomplicated; Z88.0 Allergy status to penicillin; Z91.010 Allergy to peanuts; Z90.49 Acquired absence of other specified parts of digestive tract; Z85.028 Personal history of other malignant neoplasm of stomach; Z92.21 Personal history of antineoplastic chemotherapy
CPT/HCPCS: 36415; 43239; 80053; 81000-TC; 82150-TC; 83690-TC; 84484; 85025; 85610-TC; 87040-TC; 87081; 87086; 88305; 88312; 88313; 93005; 96361; 96365; 96375; 96376; 99285; C9113; J0744; J1170; J1200; J1956; J2175; J2250; J2405; J2765; J3490; J7030; J7042; Q9967